=== PATIENT | male | born 1990 | race Caucasian/White ===

== ENCOUNTER 2018-01-28 01:00 | Emergency (ER) | payer OTHER ==
--- NOTE | 2018-01-28 03:48 | ER Document Report ---
ED General - General Chief Complaint: Palpitations Stated Complaint: PALPITATIONS Time Seen by Provider: 01/28/18 03:37 Notes: Patient is a 27-year-old male that comes to the emergency department for chief complaint of sensation of a racing heart, palpitations, lightheadedness, shortness of breath. He states this is intermittent. He states this is been going on for months. He states that when it happened prior to arrival he felt even worse than usual and decided to come and get evaluated. He states the symptoms have passed and he feels fine now. Patient states that over a year ago he snorted cocaine for a month, states that he is worried he damaged himself from this. He denies fevers, ever injecting IV drugs, caffeine, smoking , alcohol, or any daily medications. TRAVEL OUTSIDE OF THE [place] IN LAST 30 DAYS: No Past Medical History - General Information source: Patient - Social History Smoking Status: Never Smoker Frequency of alcohol use: None Drug Abuse: None Lives with: Spouse/Significant other Family History: Reviewed & Not Pertinent - Medical History Medical History: Negative Surgical Hx: Negative - Immunizations Immunizations up to date: Yes Hx Diphtheria, Pertussis, Tetanus Vaccination: Yes Review of Systems - Review of Systems Constitutional: No symptoms reported EENT: No symptoms reported Cardiovascular: See HPI Respiratory: No symptoms reported Gastrointestinal: No symptoms reported Genitourinary: No symptoms reported Male Genitourinary: No symptoms reported Musculoskeletal: No symptoms reported Skin: No symptoms reported Hematologic/Lymphatic: No symptoms reported Neurological/Psychological: No symptoms reported Physical Exam - Vital signs Vitals: Temp Pulse BP Pulse Ox 97.5 F 139 H 123/70 100 01/28/18 01:12 01/28/18 01:12 01/28/18 01:12 01/28/18 01:12 - Notes Notes: GENERAL: Alert, interacts well. No acute distress. HEAD: Normocephalic, atraumatic. EYES: Pupils equal, round, and reactive to light. Extraocular movements intact. ENT: Oral mucosa moist, tongue midline. NECK: Full range of motion. Supple. Trachea midline. LUNGS: Clear to auscultation bilaterally, no wheezes, rales, or rhonchi. No respiratory distress. HEART: Regular rate and rhythm. No murmur ABDOMEN: Soft, non-tender. Non-distended. Bowel sounds present in all 4 quadrants. EXTREMITIES: Moves all 4 extremities spontaneously. No edema, normal radial and dorsalis pedis pulses bilaterally. No cyanosis. BACK: no cervical, thoracic, lumbar midline tenderness. No saddle anesthesia, normal distal neurovascular exam. NEUROLOGICAL: Alert and oriented x3. Normal speech. [cranial nerves II through XII grossly intact]. PSYCH: Intermittently anxious, able to be reassured SKIN: Warm, dry, normal turgor. No rashes or lesions noted. Course - Re-evaluation Re-evalutation: Initial heart rate recorded at 139, however EKG does not demonstrate this, EKG sinus rhythm with normal QT C, normal DE, no T wave inversions or ST segment changes in leads. On my examination patient is not tachycardic. He is asymptomatic on my evaluation. Patient does become very easily anxious however. Possible anxiety component. CBC unremarkable, chemistry unremarkable, chest x-ray unremarkable. TSH unremarkable. Patient denies any recent recreational drugs, he does not smoke, he has no lower extremity swelling, no recent travel or surgery, no history of blood clots, not tachycardic on my exam. I have low suspicion of PE. I discussed possible panic attack component, discussed possible arrhythmia including SVT, after long discussion patient states she wants to follow-up with cardiology, he was provided with referral. Patient will be discharged with return precautions at this time. Patient states gratefulness and agreement. - Vital Signs Vital signs: Temp Pulse Resp BP Pulse Ox 97.5 F 104 H 16 107/65 100 01/28/18 01:12 01/28/18 05:45 01/28/18 05:45 01/28/18 05:45 01/28/18 05:45 - Laboratory Result Diagrams: 01/28/18 04:15 01/28/18 04:15 Discharge - Discharge Clinical Impression: Palpitations Condition: Stable Disposition: HOME, SELF-CARE Additional Instructions: Your evaluation here does not show any concerning abnormalities at this time including your EKG, chest x-ray, laboratory workup, thyroid screening test. Because of your frequent palpitation symptoms I recommend follow-up with the cardiology referral for additional evaluation including possible Holter or event monitor. Return if you worsen including difficulty breathing, chest pain , passing out, etc. Referrals: JOHN KEITH MD [ACTIVE STAFF] - Follow up as needed
[2018-01-28 04:31] LABS: ABSOLUTE BASOPHILS # (AUTO) 0.1 10^3/uL (0.0-0.2); ABSOLUTE EOSINOPHILS # (AUTO) 0.1 10^3/uL (0.0-0.6); ABSOLUTE LYMPHOCYTES (AUTO) 2.7 10^3/uL (0.5-4.7); ABSOLUTE MONOCYTES (AUTO) 0.7 10^3/uL (0.1-1.4); BASOPHILS % (AUTO) 0.7 % (0-2); EOSINOPHILS % (AUTO) 0.9 % (0-6); HEMATOCRIT 44.8 % (37.9-51.0); HEMOGLOBIN 15.8 g/dL (13.5-17.0); LYMPHOCYTES % (AUTO) 28.5 % (13-45); MEAN CORPUSCULAR HEMOGLOBIN 29.3 pg (27.0-33.4); MEAN CORPUSCULAR HGB CONC 35.2 g/dL (32.0-36.0); MEAN CORPUSCULAR VOLUME 83 fl (80-97); PLATELET COUNT 270 10^3/uL (150-450); RED BLOOD COUNT 5.38 10^6/uL (4.35-5.55); RED CELL DISTRIBUTION WIDTH 12.5 % (11.5-14.0); SEGMENTED NEUTROPHILS % (AUTO) 62.9 % (42-78); TOTAL CELLS COUNTED % (AUTO) 100 %; WHITE BLOOD COUNT 9.6 10^3/uL (4.0-10.5)
--- NOTE | 2018-01-28 04:42 | RADIOLOGY REPORT (SQ) ---
EXAM DESCRIPTION: XR CHEST 2 VIEWS COMPLETED DATE/TME: 01/28/2018 03:47 CLINICAL HISTORY: shortness of breath COMPARISON: None. FINDINGS: Frontal and lateral views of the chest. The cardiomediastinal silhouette has normal size and contour. No consolidation, pneumothorax, or pleural effusion. No displaced rib fractures identified. Upper abdominal soft tissues are unremarkable. IMPRESSION: 1. No acute pulmonary process identified.
[2018-01-28 04:50] LABS: ANION GAP 14 (5-19); BLOOD UREA NITROGEN 16 mg/dL (7-20); CALCIUM 10.2 mg/dL (8.4-10.2); CARBON DIOXIDE 25 mmol/L (22-30); CHLORIDE 103 mmol/L (98-107); GLUCOSE 87 mg/dL (75-110); POTASSIUM 3.7 mmol/L (3.6-5.0); SODIUM 141.8 mmol/L (137-145)
[2018-01-28 06:00] VITALS: BP 107/65
--- NOTE | 2018-01-28 12:28 | EKG REPORT ---
SEVERITY:- NORMAL ECG - SINUS RHYTHM : Confirmed by: Gino Esqueda 28-Jan-2018 12:27:20
== END 2018-01-28 05:45 | disposition home or self-care (01) ==
LOC: ER 01:00
DX: R00.2 Palpitations (principal); R06.02 Shortness of breath; R42 Dizziness and giddiness
CPT/HCPCS: 36415; 71046; 80048; 84443; 85025; 93005; 93010; 99285